=== PATIENT | male | born 1980 | race Hispanic/Latino ===

== ENCOUNTER 2023-10-16 20:39 | Inpatient (IN) | payer OTHER ==
[~2023-10-16] VITALS: Ht 180.3 cm; Wt 115.2 kg
[2023-10-16] MEDS: DICYCLOMINE HCL 20 MG TAB PO ONE (21:22)
[2023-10-16] MEDS: MAGNESIUM/ALUMINUM/SIMETHICONE 30 ML UDC PO ONE (21:22)
[2023-10-16] MEDS ORDERED: MAGNESIUM/ALUMINUM/SIMETHICONE 30 ML UDC ONE (21:22)
[2023-10-16] MEDS ORDERED: DICYCLOMINE HCL 20 MG TAB ONE (21:22)
[2023-10-16] MEDS ORDERED: IOPAMIDOL 370 MG/ML 100 ML INFUS..BTL INJ ONE (21:25)
[2023-10-17] VITALS (7 sets, daily range): BP systolic 150–162; BP diastolic 85–96; PULSE 86–96; RESP 18–19; TEMP 98.2–98.8; O2SAT 97–100
[2023-10-17] MEDS ORDERED: Morphine 4mg INJECTION 4 MG/ML INJ IV PRN (00:30)
[2023-10-17] MEDS ORDERED: ONDANSETRON HCL INJ 2MG/ML 2ML 2 MG/ML VIAL IV PRN (00:30)
[2023-10-17] MEDS ORDERED: SODIUM CHLORIDE 0.9% 1000ML 1,000 ML ONE (01:10)
[2023-10-17] MEDS: SODIUM CHLORIDE 0.9% 1000ML 1,000 ML IV SCH (01:12)
[2023-10-17] MEDS ORDERED: LACTATED RINGER'S 1,000 ML BAG ONE (11:01)
[2023-10-17] MEDS ORDERED: SODIUM CHLORIDE 0.9% 1000 ML BAG ONE (11:01)
[2023-10-17] MEDS: LACTATED RINGER'S 1,000 ML INJ SCH (11:30)
[2023-10-17] MEDS ORDERED: ACETAMINOPHEN 650 MG SUPP PR PRN (18:15)
[2023-10-18] VITALS (8 sets, daily range): BP systolic 125–165; BP diastolic 80–105; PULSE 86–88; RESP 18–20; TEMP 97.8–98.3; O2SAT 95–99
[2023-10-18 05:41] LABS: BASOPHILS % 0.5 % (0.0-1.0); EOSINOPHILS # (AUTO) 0.1 (0.0-0.4); EOSINOPHILS % 1.7 % (0.0-6.0); HEMOGLOBIN 13.8 g/dL (14.0-18.0); LYMPHOCYTES # (AUTO) 2.1 (1.0-3.2); LYMPHOCYTES % 26.4 % (18.0-39.1); MEAN CORPUSCULAR HEMOGLOBIN 30.5 pg (28-32); MEAN CORPUSCULAR HGB CONC 32.9 g/dL (31-35); MEAN CORPUSCULAR VOLUME 92.7 fL (81-99); MONOCYTES # (AUTO) 0.6 (0.2-0.8); MONOCYTES % 7.9 % (4.4-11.3); NEUTROPHILS % 62.8 % (38.7-80.0); PLATELET COUNT 163 x10e3/uL (140-360); RED BLOOD COUNT 4.53 x10e6/uL (4.3-5.7); RED CELL DISTRIBUTION WIDTH 13.5 % (11.7-14.4); WHITE BLOOD COUNT 8.02 x10e3/uL (4.8-10.8)
[2023-10-18 06:11] LABS: FREE T4 (FREE THYROXINE) 1.09 ng/dL (0.8-1.8); THYROID STIMULATING HORMONE 1.495 uIU/mL (0.350-4.940)
[2023-10-18 06:13] LABS: ALBUMIN 2.9 g/dL (3.5-5.0); ALBUMIN/GLOBULIN RATIO 0.7 (0.8-2.0); ANION GAP 17.8 mmol/L (8-16); BILIRUBIN,TOTAL 0.5 mg/dL (0.2-1.2); CALCIUM 9.4 mg/dL (8.4-10.2); CREATININE, SERUM 0.86 mg/dL (0.72-1.25); MAGNESIUM 1.8 MG/DL (1.3-2.1); PHOSPHORUS 2.9 MG/DL (2.3-4.7); POTASSIUM 3.8 mmol/L (3.5-5.1); TOTAL PROTEIN 7.3 g/dL (6.5-8.1)
[2023-10-18 06:25] LABS: CHOL/HDL RATIO 10.2 (3.9-4.7)
[2023-10-18] MEDS ORDERED: DEXTROSE 50% SYRINGE 50 ML IV PRN (10:45)
[2023-10-18] MEDS ORDERED: LACTATED RINGER'S 1,000 ML BAG ONE ×2 (11:22→15:26)
[2023-10-18] MEDS: INSULIN LISPRO 100 UNIT/1 ML 3ML VIAL SQ SCH (12:07)
[2023-10-18] MEDS ORDERED: INSULIN GLARGINE 100 UNITS/ML VIAL ONE ×2 (15:26→21:35)
[2023-10-18] MEDS ORDERED: METOPROLOL TARTRATE INJ 1 MG/ML VIAL ONE ×2 (15:26→18:02)
[2023-10-18] MEDS ORDERED: LACTATED RINGER'S 1,000 ML ONE (17:49)
[2023-10-18] MEDS: METOPROLOL TARTRATE INJ 1 MG/ML VIAL IV PRN (18:02)
[2023-10-18] MEDS ORDERED: LACTATED RINGER'S 2,000 ML ONE (21:36)
[2023-10-18] MEDS: INSULIN GLARGINE 100 UNITS/ML VIAL SQ SCH (21:56)
[2023-10-19] VITALS (7 sets, daily range): BP systolic 125–156; BP diastolic 70–98; PULSE 77–90; RESP 18–21; TEMP 97.7–98.4; O2SAT 97–99
[2023-10-19 04:50] LABS: BASOPHILS % 0.3 % (0.0-1.0); EOSINOPHILS # (AUTO) 0.1 (0.0-0.4); EOSINOPHILS % 1.9 % (0.0-6.0); HEMATOCRIT 39.2 % (38.2-49.6); LYMPHOCYTES % 30.5 % (18.0-39.1); MEAN CORPUSCULAR HEMOGLOBIN 29.2 pg (28-32); MEAN CORPUSCULAR HGB CONC 33.2 g/dL (31-35); MEAN CORPUSCULAR VOLUME 88.1 fL (81-99); MONOCYTES # (AUTO) 0.5 (0.2-0.8); MONOCYTES % 8.3 % (4.4-11.3); NEUTROPHILS # (AUTO) 3.7 (2.1-6.9); NEUTROPHILS % 57.8 % (38.7-80.0); PLATELET COUNT 186 x10e3/uL (140-360); RED BLOOD COUNT 4.45 x10e6/uL (4.3-5.7); RED CELL DISTRIBUTION WIDTH 12.3 % (11.7-14.4); WHITE BLOOD COUNT 6.42 x10e3/uL (4.8-10.8)
[2023-10-19] MEDS ORDERED: LACTATED RINGER'S 1,000 ML ONE ×4 (05:14→19:24)
[2023-10-19 05:22] LABS: ALBUMIN 2.7 g/dL (3.5-5.0); ALBUMIN/GLOBULIN RATIO 0.7 (0.8-2.0); ANION GAP 17.5 mmol/L (8-16); BILIRUBIN,TOTAL 0.4 mg/dL (0.2-1.2); CALCIUM 8.8 mg/dL (8.4-10.2); CREATININE, SERUM 0.83 mg/dL (0.72-1.25); POTASSIUM 3.5 mmol/L (3.5-5.1); TOTAL PROTEIN 6.5 g/dL (6.5-8.1)
[2023-10-19] MEDS ORDERED: INSULIN LISPRO 100 UNIT/1 ML 3ML VIAL SQ ONE ×2 (07:39→15:29)
[2023-10-19] MEDS ORDERED: SODIUM CHLORIDE 0.9% 1000ML 1,000 ML ONE ×2 (09:16→23:57)
[2023-10-19] MEDS ORDERED: MAGNESIUM SULFATE 2GM/50ML 50 ML IV ONE (10:16)
[2023-10-19] MEDS ORDERED: MAGNESIUM OXIDE 400 MG TAB ONE ×3 (10:16→17:13)
[2023-10-19] MEDS: MAGNESIUM SULFATE 2GM/50ML 50 ML IV ONE (10:36)
[2023-10-19] MEDS: MAGNESIUM OXIDE 400 MG TAB PO SCH (10:36)
[2023-10-19] MEDS ORDERED: ONDANSETRON HCL 4 MG ORAL DISINTEGRATING TAB PO PRN (11:45)
[2023-10-19] MEDS ORDERED: MAGNESIUM SULF 1GRAM/DEXTROSE 100 ML IV ONE (13:07)
[2023-10-19] MEDS: MAGNESIUM SULF 1GRAM/DEXTROSE 100 ML IV ONE (13:08)
[2023-10-19] MEDS ORDERED: SODIUM CHLORIDE 0.9% 1000 ML BAG ONE (15:29)
[2023-10-19] MEDS ORDERED: LACTATED RINGER'S 1,000 ML BAG ONE (15:29)
[2023-10-19] MEDS ORDERED: POTASSIUM CHLORIDE 20 MEQ TAB CR PO ONE (17:12)
[2023-10-19] MEDS: POTASSIUM CHLORIDE 10MEQ EA PO ONE (17:15)
[2023-10-19] MEDS ORDERED: POTASSIUM CHLORIDE 10MEQ EA ONE ×2 (17:16→17:22)
[2023-10-20] MEDS ORDERED: LACTATED RINGER'S 1,000 ML ONE ×5 (00:11→12:02)
[2023-10-20 04:15] VITALS: BP 144/93; PULSE 79; RESP 18; TEMP 97.7; O2SAT 97
[2023-10-20 07:50] LABS: ANION GAP 12.6 mmol/L (8-16); CALCIUM 8.8 mg/dL (8.4-10.2); CREATININE, SERUM 0.81 mg/dL (0.72-1.25); MAGNESIUM 1.8 MG/DL (1.3-2.1); POTASSIUM 3.6 mmol/L (3.5-5.1)
[2023-10-20 08:29] VITALS: BP 150/97; PULSE 78; RESP 17; TEMP 98.2; O2SAT 97
[2023-10-20] MEDS ORDERED: METFORMIN HCL 500 MG TAB ONE ×2 (08:41→12:02)
[2023-10-20] MEDS ORDERED: MAGNESIUM OXIDE 400 MG TAB ONE (08:41)
[2023-10-20] MEDS: METFORMIN HCL 500 MG TAB PO SCH (08:52)
[2023-10-20 09:05] VITALS: BP 150/97; PULSE 78; RESP 17; TEMP 98.2; O2SAT 97
[2023-10-20 12:00] VITALS: BP 149/108; PULSE 81; RESP 17; TEMP 98; O2SAT 97
[2023-10-20] MEDS ORDERED: ONDANSETRON ODT4 MG PO (12:17)
[2023-10-20] MEDS ORDERED: MAG-OXIDE400 MG PO (12:17)
[2023-10-20] MEDS ORDERED: GLIPIZIDE5 MG PO (12:34)
[2023-10-20] MEDS ORDERED: METFORMIN HCL500 MG PO (12:34)
[2023-10-21] MEDS ORDERED: PANTOPRAZOLE SOD 40 MG TABEC PO SCH (07:30)
== END 2023-10-20 14:19 | disposition home or self-care (01) | DRG 440 ==
LOC: FSED 20:48 → ERHOLD 10-17 00:26 → MED/SURG 10-17 01:31
PROVIDERS: ADMIT Internal Medicine; ATTEND Internal Medicine
DX: K85.80 Other acute pancreatitis without necrosis or infection (principal); Z87.891 Personal history of nicotine dependence; F12.90 Cannabis use, unspecified, uncomplicated; I16.0 Hypertensive urgency; K76.0 Fatty (change of) liver, not elsewhere classified; E11.65 Type 2 diabetes mellitus with hyperglycemia; Z83.3 Family history of diabetes mellitus; Z84.1 Family history of disorders of kidney and ureter; Z82.49 Family history of ischemic heart disease and other diseases of the circulatory system; E86.0 Dehydration; E66.9 Obesity, unspecified; Z68.35 Body mass index [BMI] 35.0-35.9, adult; Z11.52 Encounter for screening for COVID-19; I10 Essential (primary) hypertension
CPT/HCPCS: 36415; 74177; 80048; 80053; 80061; 82948; 83036; 83690; 83735; 84100; 84439; 84443; 85025; 93005; 94799; 96372; 99284; J1815; J3475; J7030; Q9967